=== PATIENT | male | born 2000 | race Hispanic/Latino ===

== ENCOUNTER 2024-08-22 23:38 | Emergency (ER) | payer OTHER ==
[~2024-08-22] VITALS: Ht 172.7 cm; Wt 76.0 kg
[2024-08-23] MEDS ORDERED: PRED20TA PO (01:54)
[2024-08-23] MEDS ORDERED: TRIA1CR80 TOP (01:54)
[2024-08-23 01:58] VITALS: BP 116/56; TEMP 98; O2SAT 97
== END 2024-08-23 02:08 | disposition home or self-care (01) ==
LOC: M ED 23:38
DX: L20.84 Intrinsic (allergic) eczema (principal); Z79.52 Long term (current) use of systemic steroids; Z79.899 Other long term (current) drug therapy

== ENCOUNTER → 2025-01-08 | Outpatient (CLI) | payer OTHER ==
[~2025-01-08] MED LIST: ISOVUE-300 61% 100 ML VIAL As Ordered ONE; LIDOCAINE 1% MDV 20 ML VIAL As Ordered ONE; PRED20TA PO; TRIA1CR80 TOP; methylPREDNISolone 80 MG/ML SUSP 1 ML VIAL As Ordered ONE
== END ==
LOC: M RAD 13:35
PROVIDERS: ATTEND Student in an Organized Health Care Education/Training Program
DX: M25.551 Pain in right hip (principal)
CPT/HCPCS: 20610; 77002; J1010; Q9967